=== PATIENT | female | born 1970 | race Caucasian/White ===

== ENCOUNTER 2016-12-01 16:53 | Emergency (ER) | payer OTHER ==
[2016-12-01 17:04] VITALS: BP 141/82; PULSE 85; RESP 18; TEMP 98.5; O2SAT 99
--- NOTE | 2016-12-01 17:35 | C.PDOC ---
History Of Present Illness 46 yo female w/o significant PMHx come in for evaluation of B/L feet " burning pain gradually developed for past 2 weeks. Pt sts, pain is intermittent but became more intense for past few days, localized, non-radiating. Otherwise, pt denies known trauma or injury, fever, chills, denies abd. pain, N/V, back pain, UTI sx, denies weakness, vascular deficits to B/L lEs. Ambulate to ED for evaluation, not in any apparent distress. Time Seen by Provider: 12/01/16 17:11 Chief Complaint (Nursing): Lower Extremity Problem/Injury History Per: Patient Past Medical History Reviewed: Historical Data, Nursing Documentation, Vital Signs Vital Signs: Last Vital Signs Temp 98.5 F 12/01/16 17:01 Pulse 85 12/01/16 17:01 Resp 18 12/01/16 17:01 BP 141/82 12/01/16 17:01 Pulse Ox 99 12/01/16 18:32 - Medical History PMH: No Chronic Diseases, TIA Denies: Diabetes Surgical History: No Surg Hx Family History: States: No Known Family Hx - Social History Hx Tobacco Use: No Hx Alcohol Use: No Hx Substance Use: No - Immunization History Hx Tetanus Toxoid Vaccination: No Hx Influenza Vaccination: No Hx Pneumococcal Vaccination: No Review Of Systems Except As Marked, All Systems Reviewed And Found Negative. Constitutional: Negative for: Fever, Chills Eyes: Negative for: Vision Change ENT: Negative for: Throat Pain, Throat Swelling Cardiovascular: Negative for: Chest Pain Respiratory: Negative for: Shortness of Breath Gastrointestinal: Negative for: Nausea, Vomiting, Abdominal Pain, Diarrhea Musculoskeletal: Positive for: Foot Pain Skin: Negative for: Rash, Bruising Neurological: Negative for: Weakness, Numbness, Dizziness Physical Exam - Physical Exam Appears: Well, Non-toxic, No Acute Distress Skin: Normal Color, Warm, No Rash, No Ecchymosis Oral Mucosa: Moist Throat: No Drooling Extremity: Normal ROM (B/L LEs), Tenderness (mild tenderness along plantar arch R>L. NO edema, no erythema, no palpable deformity.), No Calf Tenderness (B/L), Capillary Refill (less than 2sec to B/L LEs.), No Deformity, No Swelling Neurological/Psych: Oriented x3, Normal Speech, Normal Motor, Normal Sensation, Normal Reflexes ED Course And Treatment O2 Sat by Pulse Oximetry: 99 Progress Note: On re-eavl, pt elgin febrile, hemodynamicaly stable. Non-toxic. Ambulatory in ED with stable gait. ABd: benigh. Back: (-) midline tenderness, (-) CVA tenderness. B/L LEs: exam c/w plantar fasciatis R>L, no cellulitis, no deformity. FAROM, no neurovascular deficits. Neurologicaly intact. Imaging review and appears normal. [id number]. Pt advised on course of ds. ref. to f/u with [facility] in 2-3 days for re-evaluation. Return to ED if any worsening or new changes. Disposition Counseled Patient/Family Regarding: Studies Performed, Diagnosis, Need For Followup, Rx Given - Disposition Referrals: Podiatry Clinic [Outside] Disposition: HOME/ ROUTINE Disposition Time: 18:01 Condition: STABLE Additional Instructions: Change shoe Foot massage Take medication as need for pain Follow up with [facility] in 2-3 days for re-evaluation. return to ED if any worsening or new changes. Prescriptions: traMADol [Ultram] 50 mg PO TID #7 tab Instructions: Plantar Fasciitis (ED) Forms: [facility] (Grenadian) - Clinical Impression Clinical Impression: Plantar fasciitis
--- NOTE | 2016-12-02 17:59 | RAD ---
PROCEDURE: Bilateral Feet Radiographs. HISTORY: pain COMPARISON: None. FINDINGS: BONES: Right Foot: No evidence of acute displaced fracture nor dislocation. . There is a small enthesophyte arising from the plantar surface right calcaneus Left Foot: Normal. No fracture. JOINTS: Right Foot: Mild hallux valgus deformity Left Foot: Minor hallux valgus deformity. SOFT TISSUES: Right Foot: Normal. Left Foot: Normal. OTHER FINDINGS: None. IMPRESSION: Small enthesophyte plantar surface right calcaneus. No evidence of acute displaced fracture nor dislocation. Bilateral hallux valgus deformities left greater than right as detailed above
== END 2016-12-01 18:46 | disposition home or self-care (01) ==
LOC: C.ER 16:53
DX: M72.2 Plantar fascial fibromatosis (principal)

== ENCOUNTER 2017-10-23 11:07 | Emergency (ER) | payer BC, OTHER ==
[2017-10-23 11:17] VITALS: BP 143/93; PULSE 75; RESP 18; TEMP 98.5; O2SAT 100
--- NOTE | 2017-10-23 12:24 | C.PDOC ---
History Of Present Illness 47 y/o female presents to the ED complaining of 10 days of mid back pain. No trauma or recent falls. Patient was evaluated in the D.R. for similar complaint and diagnosed with a muscle strain. She denies taking any pain medication or trying ice therapy at home. Otherwise she denies any dysuria, frequency, incontinence, numbness, or tingling. Time Seen by Provider: 10/23/17 12:05 Chief Complaint (Nursing): Back Pain History Per: Patient History/Exam Limitations: no limitations Onset/Duration Of Symptoms: Days (x10) Current Symptoms Are (Timing): Still Present Associated Symptoms: None Exacerbating Factor(s): Movement Past Medical History Reviewed: Historical Data, Nursing Documentation, Vital Signs Vital Signs: Last Vital Signs Temp 98.5 F 10/23/17 11:12 Pulse 75 10/23/17 11:12 Resp 18 10/23/17 11:12 BP 143/93 H 10/23/17 11:12 Pulse Ox 100 10/23/17 12:26 - Medical History PMH: TIA Denies: Diabetes Family History: States: No Known Family Hx - Social History Hx Tobacco Use: No Hx Alcohol Use: No Hx Substance Use: No - Immunization History Hx Tetanus Toxoid Vaccination: No Hx Influenza Vaccination: No Hx Pneumococcal Vaccination: No Review Of Systems Except As Marked, All Systems Reviewed And Found Negative. Constitutional: Negative for: Fever, Chills Gastrointestinal: Negative for: Vomiting, Abdominal Pain Genitourinary: Negative for: Dysuria, Frequency, Incontinence, Vaginal Discharge , Vaginal Bleeding Musculoskeletal: Positive for: Back Pain Neurological: Negative for: Weakness, Numbness, Incoordination Physical Exam - Physical Exam Appears: Non-toxic, No Acute Distress Skin: Warm, Dry, No Rash Head: Atraumatic, Normacephalic Eye(s): bilateral: Normal Inspection, PERRL, EOMI Oral Mucosa: Moist Neck: Normal ROM, Supple Chest: Symmetrical Back: No Vertebral Tenderness, Paraspinal Tenderness (Mild tenderness to bilateral parathoracic areas) Extremity: Bilateral: Atraumatic, Normal Color And Temperature, Normal ROM Pulses: Left Dorsalis Pedis: Normal, Right Dorsalis Pedis: Normal Neurological/Psych: Oriented x3, Normal Speech ED Course And Treatment - Laboratory Results Lab Interpretation: Normal (ua neg.) Urine POC: Negative O2 Sat by Pulse Oximetry: 100 (RA) Pulse Ox Interpretation: Normal Medical Decision Making Medical Decision Making: Initial Plan: * Urine preg * Urinalysis * Motrin 600mg PO thoracic back sprain/strain no UTI/preg Disposition Doctor Will See Patient In The: Office Counseled Patient/Family Regarding: Studies Performed, Diagnosis - Disposition Disposition: HOME/ ROUTINE Disposition Time: 13:13 Condition: GOOD Forms: [facility] (Estonian) - Clinical Impression Clinical Impression: Low back strain - Scribe Statement The provider has reviewed the documentation as recorded by the Soco Javier Provider Attestation: All medical record entries made by the Soco were at my direction and personally dictated by me. I have reviewed the chart and agree that the record accurately reflects my personal performance of the history, physical exam, medical decision making, and the department course for this patient. I have also personally directed, reviewed, and agree with the discharge instructions and disposition.
[2017-10-23 12:40] LABS: HCG,QUALITATIVE URINE NEGATIVE (NEGATIVE)
[2017-10-23 13:09] LABS: URINE BILIRUBIN NEGATIVE (NEGATIVE); URINE BLOOD 2+ (NEGATIVE); URINE CLARITY Clear (Clear); URINE COLOR YELLOW (YELLOW); URINE GLUCOSE (UA) NEGATIVE (Normal); URINE LEUKOCYTE ESTERASE NEGATIVE Leu/uL (Negative); URINE PROTEIN NEGATIVE (NEGATIVE); URINE UROBILINOGEN 0.2 mg/dL (0.2-1.0)
[2017-10-23 13:10] LABS: SQUAMOUS EPITHIAL < 1 /hpf (0-5)
== END 2017-10-23 13:21 | disposition home or self-care (01) ==
LOC: C.ER 11:07
DX: S39.012A Strain of muscle, fascia and tendon of lower back, initial encounter (principal); X58.XXXA Exposure to other specified factors, initial encounter

== ENCOUNTER 2018-03-06 14:22 | Emergency (ER) | payer BC ==
--- NOTE | 2018-03-06 15:44 | C.PDOC ---
History Of Present Illness 47 y/o female presents to the ER complaining of left hip pain which has been present for the past 3-4 days. Patient states that she is able to ambulate. Patient reports that she is concerned about the hip pain because people in her family have hip problems. Denies having bowel/bladder dysfunction, weakness in legs, fever, and chills. Time Seen by Provider: 03/06/18 15:19 Chief Complaint (Nursing): Lower Extremity Problem/Injury History Per: Patient History/Exam Limitations: no limitations Onset/Duration Of Symptoms: Days Current Symptoms Are (Timing): Still Present Severity: Moderate Past Medical History Reviewed: Historical Data, Nursing Documentation, Vital Signs Vital Signs: Last Vital Signs Temp 97.8 F 03/06/18 15:04 Pulse 81 03/06/18 15:04 Resp 20 03/06/18 15:04 BP 125/79 03/06/18 15:04 Pulse Ox 98 03/06/18 15:04 - Medical History PMH: TIA Denies: Diabetes Other Surgeries: Hx of surgeries Family History: States: No Known Family Hx - Social History Hx Tobacco Use: No Hx Alcohol Use: No Hx Substance Use: No - Immunization History Hx Tetanus Toxoid Vaccination: No Hx Influenza Vaccination: No Hx Pneumococcal Vaccination: No Review Of Systems Constitutional: Negative for: Fever, Chills Genitourinary: Negative for: Dysuria, Incontinence, Hematuria Musculoskeletal: Positive for: Other (left hip pain) Neurological: Negative for: Weakness, Numbness Physical Exam - Physical Exam Appears: Non-toxic, No Acute Distress Skin: Normal Color, Warm, Dry Head: Atraumatic, Normacephalic Eye(s): bilateral: Normal Inspection Nose: Normal Oral Mucosa: Moist Neck: Supple Chest: Symmetrical Cardiovascular: Rhythm Regular Respiratory: Normal Breath Sounds, No Rales, No Rhonchi, No Wheezing Back: Paraspinal Tenderness (left sided lumbar paravertebral tenderness) Extremity: Normal ROM, Tenderness (minimal tenderness to posterior superior iliac spine), No Swelling Neurological/Psych: Oriented x3, Normal Speech, Normal Motor (legs), Normal Sensation (legs) Gait: Steady ED Course And Treatment O2 Sat by Pulse Oximetry: 98 (RA) Pulse Ox Interpretation: Normal - Other Rad L hip Interpretation: Date of service: 03/06/2018. PROCEDURE: HISTORY: L hip pain. COMPARISON: 07/13/2015. TECHNIQUE: AP pelvis and frog's leg view. FINDINGS: No left hip fracture noted. Bilateral superolateral hip joint space narrowing. No dislocation seen. Trace bilateral minimal sclerotic SI joint arthrosis. Bilateral L4-5 and L5-S1 hypertrophic arthrosis. Minimal S sclerosis cortical with mild sub chondral cystic changes pubic symphysis- previously noted and fairly similar. Interval increased stool appreciated on this exam. A well corticated ossification ossific debris and/or previously obscured right os acetabulum is noted on the current study. IMPRESSION: No interval fracture or lytic lesion. Mild degenerative changes as detailed above Medical Decision Making Medical Decision Making: Plan: --Toradol IM --Motrin PO --X-Ray-Left Hip XR done and results discussed with patient. Advised continuing ibuprofen at home for pain. Follow up with PMD. Return to the ED for new or worsening symptoms. Disposition - Disposition Disposition: HOME/ ROUTINE Disposition Time: 17:00 Condition: STABLE Additional Instructions: NOEMY ENNIS, thank you for letting us take care of you today. Your provider was Dilcia Ulloa MD and you were treated for VOMITING/DIARRHEA. The emergency medical care you received today was directed at your acute symptoms. If you were prescribed any medication, please fill it and take as directed. It may take several days for your symptoms to resolve. Return to the Emergency Department if your symptoms worsen, do not improve, or if you have any other problems. Please contact your doctor or call one of the physicians/clinics you have been referred to that are listed on the Patient Visit Information form that is included in your discharge packet. Bring any paperwork you were given at discharge with you along with any medications you are taking to your follow up visit. Our treatment cannot replace ongoing medical care by a primary care provider outside of the emergency department. Thank you for allowing the [facility] team to be part of your care today. If you had an X-Ray or CT scan: A Radiologist will review the ED reading if any change in treatment is needed we will contact you. If you had a blood, urine, or wound culture: It will take several days for the results, if any change in treatment is needed we will contact you. If you had an STI test: It will take 48 hours for the results. Please call after 1 week if you have not heard back. Instructions: Hip Pain (DC) Forms: Gen Discharge Inst Ivorian, [facility] (Ivorian) Print Language: [place] ISLANDER - Clinical Impression Clinical Impression: Left hip pain - Scribe Statement The provider has reviewed the documentation as recorded by the Dericibehsan Alcantar Provider Attestation: All medical record entries made by the Dericibehsan were at my direction and personally dictated by me. I have reviewed the chart and agree that the record accurately reflects my personal performance of the history, physical exam, medical decision making, and the department course for this patient. I have also personally directed, reviewed, and agree with the discharge instructions and disposition.
--- NOTE | 2018-03-06 16:31 | RAD ---
Date of service: 03/06/2018 PROCEDURE: HISTORY: L hip pain COMPARISON: 07/13/2015 TECHNIQUE: AP pelvis and frog's leg view. FINDINGS: No left hip fracture noted. Bilateral superolateral hip joint space narrowing. No dislocation seen. Trace bilateral minimal sclerotic SI joint arthrosis. Bilateral L4-5 and L5-S1 hypertrophic arthrosis. Minimal S sclerosis cortical with mild sub chondral cystic changes pubic symphysis-previously noted and fairly similar. Interval increased stool appreciated on this exam. A well corticated ossification ossific debris and/or previously obscured right os acetabulum is noted on the current study. IMPRESSION: No interval fracture or lytic lesion. Mild degenerative changes as detailed above
[2018-03-06 16:58] VITALS: BP 140/81; PULSE 72; RESP 18; TEMP 98.1
[2018-03-06 18:55] VITALS: O2SAT 98
== END 2018-03-06 16:59 | disposition home or self-care (01) ==
LOC: C.ER 14:22
DX: M25.552 Pain in left hip (principal); Z86.73 Personal history of transient ischemic attack (TIA), and cerebral infarction without residual deficits

== ENCOUNTER 2018-04-21 15:24 | Emergency (ER) | payer BC ==
[2018-04-21 15:37] VITALS: RESP 18
[2018-04-21] MEDS ORDERED: Alum-Mag Hydrox-Simethicone Susp (30 mL) PO STA (16:18)
[2018-04-21] MEDS ORDERED: Sodium Chloride 0.9% 1,000 ML IV STA (16:18)
--- NOTE | 2018-04-21 16:20 | C.PDOC ---
History Of Present Illness 47 y/o F c no PMHx p/w abdominal pain x 2 days. Pain is diffusely across lower/mid abdomen, associated with NBNB vomiting, diarrhea. Denies fever, chills, chest pain, dyspnea, dysuria, vaginal bleeding. Time Seen by Provider: 04/21/18 16:07 Chief Complaint (Nursing): Abdominal Pain Past Medical History Vital Signs: Last Vital Signs Temp 98.0 F 04/21/18 15:35 Pulse 88 04/21/18 15:35 Resp 18 04/21/18 15:35 BP 159/89 H 04/21/18 15:35 Pulse Ox 99 04/21/18 15:35 - Medical History PMH: TIA Denies: Diabetes Family History: States: No Known Family Hx - Social History Hx Tobacco Use: No Hx Alcohol Use: No Hx Substance Use: No - Immunization History Hx Tetanus Toxoid Vaccination: Yes Hx Influenza Vaccination: No Hx Pneumococcal Vaccination: No Review Of Systems Except As Marked, All Systems Reviewed And Found Negative. Constitutional: Negative for: Fever Respiratory: Negative for: Shortness of Breath Physical Exam - Physical Exam Additional Physical Exam Comments: Constitutional: No acute distress. Head: Normocephalic. Atraumatic. Eyes: PERRL. ENT: Moist mucous membranes. Neck: Supple. Cardiovascular: Regular rate. Radial pulse 2+ bilaterally. Chest: No tenderness. Respiratory: Clear to auscultation bilaterally. GI: Soft. Nontender. Nondistended. Back: No CVA tenderness. Musculoskeletal: No tenderness or swelling of extremities. Skin: No rash. Neurologic: Alert, no focal deficit. ED Course And Treatment - Laboratory Results Result Diagrams: 04/21/18 16:35 04/21/18 16:35 O2 Sat by Pulse Oximetry: 99 Medical Decision Making Medical Decision Making: Patient states feels better. Will discharge, f/u PMD, return to ED for worsening pain, fever, vomiting, or any other problem. Disposition - Disposition Disposition: HOME/ ROUTINE Disposition Time: 18:10 Condition: STABLE Prescriptions: Ondansetron ODT [Zofran ODT] 4 mg PO Q8 #12 odt Instructions: Viral Gastroenteritis Forms: [facility] (Telugu), Gen Discharge Inst Italian Print Language: TAMAZIGHT - Clinical Impression Clinical Impression: Vomiting, Diarrhea
[2018-04-21 16:39] LABS: BASO # 0.1 K/uL (0.0-0.2); BASO % 0.9 % (0.0-2.0); EOS # 0.1 K/uL (0.0-0.7); EOS % 1.3 % (0.0-4.0); HEMOGLOBIN 13.7 g/dL (11.0-16.0); LYMPH # 0.9 K/uL (1.0-4.3); LYMPH % 12.3 % (20.0-40.0); MEAN CELL VOLUME 90.3 fL (81.0-99.0); MEAN CORPUSCULAR HGB CONC 33.2 g/dL (33.0-37.0); MONO # 0.5 K/uL (0.0-0.8); MONO % 7.6 % (0.0-10.0); NEUT # 5.6 K/uL (1.8-7.0); NEUT % 77.9 % (50.0-75.0); NRBC % 0.1 % (0.0-2.0); RBC 4.59 Mil/uL (3.80-5.20); RED CELL DISTRIBUTION WIDTH 12.8 % (11.5-14.5); WHITE BLOOD COUNT 7.2 K/uL (4.8-10.8)
[2018-04-21 16:53] LABS: ALB/GLOB RATIO 1.3 (1.0-2.1); ALT/SGPT 11 U/L (9-52); AST/SGOT 19 U/L (14-36); BLOOD UREA NITROGEN 11 mg/dL (7-17); CALCIUM 8.8 mg/dl (8.6-10.4); GFR NON-AFRICAN AMERICAN > 60; LIPASE 41 U/L (23-300)
[2018-04-21] MEDS ORDERED: Alum-Mag Hydrox-Simethicone Susp (30 mL) ONE (16:56)
[2018-04-21] MEDS ORDERED: Sodium Chloride 0.9% 1,000 ML ONE (16:57)
[2018-04-21 17:33] LABS: HCG,QUALITATIVE URINE NEGATIVE (NEGATIVE); SQUAMOUS EPITHIAL 14 /hpf (0-5); URINE BACTERIA OCC (<OCC); URINE BILIRUBIN NEGATIVE (NEGATIVE); URINE BLOOD 3+ (NEGATIVE); URINE CLARITY Hazy (Clear); URINE COLOR Yellow (YELLOW); URINE GLUCOSE (UA) NORMAL (Normal); URINE LEUKOCYTE ESTERASE NEG Leu/uL (Negative); URINE PROTEIN NEGATIVE (NEGATIVE); URINE UROBILINOGEN NORMAL mg/dL (0.2-1.0)
[2018-04-21 18:53] VITALS: BP 122/81; PULSE 81; TEMP 99.2; O2SAT 98
== END 2018-04-21 18:50 | disposition home or self-care (01) ==
LOC: C.ER 15:24
DX: R11.10 Vomiting, unspecified (principal); R19.7 Diarrhea, unspecified; Z86.73 Personal history of transient ischemic attack (TIA), and cerebral infarction without residual deficits
CPT/HCPCS: 80053; 81001; 83690; 84703; 85025; 87086; 96361; 96374; 96375; 99285; J2405; J7030

== ENCOUNTER → 2018-06-10 | Outpatient (CLI) | payer BC | LOC: C.MAMMO 09:29 | DX: Z12.31 Encounter for screening mammogram for malignant neoplasm of breast (principal) ==